=== PATIENT | male | born 1980 | race Caucasian/White ===

== ENCOUNTER 2018-05-09 10:36 | Emergency (ER) | payer MEDICAID ==
[2018-05-09 11:04] VITALS: BP 120/73
--- NOTE | 2018-05-09 11:21 | EDM.PDOC ---
ED HPI GENERAL MEDICAL PROBLEM - General Chief Complaint: Abdominal Pain Stated Complaint: LT SIDE ABD PAIN Time Seen by Provider: 05/09/18 11:05 Source of Information: Reports: Patient, Old Records, RN History Limitations: Reports: No Limitations - History of Present Illness INITIAL COMMENTS - FREE TEXT/NARRATIVE: 38 yo male here with L sided abdominal pain for about a week. Does not have a doctor. No fever. No vomiting. No "good" BM for about a week. Is taking stool softeners without good results. States pain is always there. 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 No hx of diverticulitis or abdominal surgeries. 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: Reports: Other (see below) (stool softeners) - Related Data Allergies Allergy/AdvReac Type Severity Reaction Status Date / Time No Known Allergies Allergy Verified 05/09/18 10:57 Home Meds: Home Meds Triamcinolone Acetonide [Triamcinolone Acetonide 0.5%] 1 applic TOP BID [History] Famotidine 40 mg PO DAILY #14 tablet 05/09/18 [Rx] Social & Family History - Tobacco Use Smoking Status *Q: Never Smoker ED ROS GENERAL - Review of Systems Review Of Systems: See Below Constitutional: Reports: No Symptoms HEENT: Reports: No Symptoms Respiratory: Reports: No Symptoms Cardiovascular: Reports: No Symptoms GI/Abdominal: Reports: Abdominal Pain, Other (inadequate stooling). Denies: Black Stool, Bloody Stool, Diarrhea, Hematemesis, Hematochezia, Melena, Nausea, Vomiting : Reports: No Symptoms Musculoskeletal: Reports: No Symptoms Skin: Reports: No Symptoms Neurological: Reports: No Symptoms ED EXAM, GI/ABD - Physical Exam Exam: See Below Exam Limited By: No Limitations General Appearance: Alert, WD/WN, No Apparent Distress Eyes: Bilateral: Normal Appearance Ears: Normal External Exam, Hearing Grossly Normal Nose: Normal Inspection, No Blood Throat/Mouth: Normal Inspection, Normal Lips, Normal Oropharynx, Normal Voice, No Airway Compromise Head: Atraumatic, Normocephalic Neck: Normal Inspection Respiratory/Chest: No Respiratory Distress, Lungs Clear, Normal Breath Sounds, No Accessory Muscle Use Cardiovascular: Regular Rate, Rhythm, No Edema GI/Abdominal Exam: Soft, Non-Tender, No Distention Back Exam: Normal Inspection. No: CVA Tenderness (R), CVA Tenderness (L) Extremities: Normal Inspection, Normal Range of Motion, Non-Tender, No Pedal Edema Neurological: Alert, Oriented, CN II-XII Intact, Normal Cognition, No Motor/ Sensory Deficits Psychiatric: Normal Affect, Normal Mood Skin Exam: Warm, Dry, Intact, Normal Color, No Rash Course - Vital Signs Last Recorded V/S: Last Vital Signs Temp 35.9 C 05/09/18 11:02 Pulse 64 05/09/18 11:02 Resp 14 05/09/18 11:02 BP 120/73 05/09/18 11:02 Pulse Ox 96 05/09/18 11:02 - Orders/Labs/Meds Labs: Laboratory Tests 05/09/18 05/09/18 05/09/18 Range/Units 12:23 12:31 13:07 WBC 9.7 (4.5-11.0) K/uL RBC 5.30 (4.30-5.90) M/uL Hgb 15.9 H (12.0-15.0) g/dL Hct 46.4 (40.0-54.0) % MCV 88 (80-98) fL MCH 30 (27-31) pg MCHC 34 (32-36) % Plt Count 233 (150-400) K/uL C-Reactive Protein 0.25 (0.0-0.3) mg/dL Urine Color Yellow Urine Appearance Clear Urine pH 6.0 (4.5-8.0) Ur Specific [place] 1.015 (1.008-1.030) Urine Protein Negative (NEGATIVE) mg/dL Urine Glucose (UA) Normal (NEGATIVE) mg/dL Urine Ketones Negative (NEGATIVE) mg/dL Urine Occult Blood Negative (NEGATIVE) Urine Nitrite Negative (NEGAITVE) Urine Bilirubin Negative (NEGATIVE) Urine Urobilinogen Normal (NORMAL) mg/dL Ur Leukocyte Esterase Negative (NEGATIVE) Urine RBC 0-5 (0-5) Urine WBC 0-5 (0-5) Ur Epithelial Cells Not seen Amorphous Sediment Few Urine Bacteria Not seen Urine Mucus Not seen Meds: Medications Discontinued Medications Generic Name Dose Route Start Last Admin Trade Name Florina PRN Reason Stop Dose Admin Famotidine 40 mg 05/09/18 13:10 Pepcid PO 05/09/18 13:11 ONETIME ONE - Radiology Interpretation Free Text/Narrative:: Abdominal X-ray-neg Departure - Departure Time of Disposition: 13:19 Disposition: Home, Self-Care 01 Condition: Good Clinical Impression: Abdominal pain in male - Discharge Information *PRESCRIPTION DRUG MONITORING PROGRAM REVIEWED*: No *COPY OF PRESCRIPTION DRUG MONITORING REPORT IN PATIENT ARI: No Prescriptions: Famotidine 40 mg PO DAILY #14 tablet Referrals: PCP,None [Primary Care Provider] - Forms: ED Department Discharge Additional Instructions: Take famotidine every 24 hrs. Take acetaminophen 1000 mg every 6 hrs as needed. Recheck in the clinic in 2-3 days, call for an appt.
--- NOTE | 2018-05-09 12:20 | CRLCR ---
INDICATION: Left sided abdominal pain. FINDINGS: A supine AP view of the abdomen was obtained. There is a nonobstructive bowel gas pattern. IMPRESSION: No plain film evidence of a bowel obstruction. Dictated by Abel Gavin MD @ 05/09/2018 12:18:19 PM Dictated by: Abel Gavin MD @ 05/09/2018 12:18:25 (Electronically Signed)
[2018-05-09] MEDS ORDERED: Famotidine 20 MG Tab PO ONE (13:10)
== END 2018-05-09 13:42 | disposition home or self-care (01) ==
LOC: JP.ED 10:36
DX: R10.9 Unspecified abdominal pain (principal)
CPT/HCPCS: 36415; 74018; 81001; 85027; 86140; 99284

== ENCOUNTER 2018-05-12 07:53 | Day surgery (SDC) | payer MEDICAID ==
[2018-05-12] MEDS ORDERED: Lactated Ringers 1,000 ML IV SCH (08:15)
[2018-05-12] MEDS ORDERED: fentaNYL 100 MCG/2 ML SDV ONE (09:13)
[2018-05-12] MEDS ORDERED: Propofol 200 MG/20 ML SDV ONE (09:13)
[2018-05-12] MEDS ORDERED: Midazolam 1 MG/ML 2 ML SDV ONE (09:13)
[2018-05-12 10:50] VITALS: BP 107/56
--- NOTE | 2018-05-12 11:00 | OR ---
DATE OF PROCEDURE: 05/12/2018 PREOPERATIVE DIAGNOSIS: Abdominal pain. POSTOPERATIVE DIAGNOSES: 1. Pre-pyloric ulcers. 2. Small area of sigmoid colon inflammation. PROCEDURES PERFORMED: 1. Esophagogastroduodenoscopy with antral biopsies for CLOtest and for pathology to look for Helicobacter pylori. 2. Colonoscopy to the cecum with biopsy of inflamed sigmoid colon area. SURGEON: Ramón Kirk MD. ANESTHESIA: IV anesthesia with monitored anesthesia care. INDICATION: This 38-year-old white male is referred for upper and lower endoscopies because of abdominal pain. He has never had either of these exams in the past. I counseled him for upper and lower endoscopy with possible biopsy, including risks and alternatives , and he gave his informed consent to proceed. DESCRIPTION OF PROCEDURE: The patient was placed in the left lateral decubitus position. IV anesthesia was administered by the Anesthesia Service. Time-out was held. The flexible video Olympus upper endoscope was passed through his mouth, down his esophagus, and into his stomach. The scope was easily passed through the pylorus and into the duodenum reaching its third portion. The scope was then slowly withdrawn examining the mucosa throughout. The duodenal mucosa appeared unremarkable. The scope was brought up through the pylorus into the antrum where two small pre-pyloric ulcers were seen. These were very shallow. The scope was retroflexed. The proximal stomach appeared unremarkable. The scope was straightened. We obtained antral biopsies for CLOtest and for pathology to look for Helicobacter pylori. The scope was then brought back up through the GE junction. This appeared unremarkable and then it was removed through the unremarkable-appearing esophagus. Next, a rectal exam was performed, which was unremarkable. The flexible video Olympus colonoscope was introduced through his anus, up his rectum and out his colon all the way to the cecum. Once the cecum was reached, the scope was slowly withdrawn examining the mucosa throughout. No mucosal abnormalities were noted until we reached the sigmoid colon. Here, we saw a small area of erythema suggesting of a localized colitis. We obtained biopsies of this area. The scope was then brought back into the rectum, where it was retroflexed. The distal rectum appeared unremarkable. The scope was straightened and removed. He tolerated the procedure well. Ramón Kirk MD /[id number] [facility]
== END 2018-05-12 10:55 | disposition home or self-care (01) ==
LOC: JP.SDS 07:53
PROVIDERS: ATTEND Surgery
DX: K25.9 Gastric ulcer, unspecified as acute or chronic, without hemorrhage or perforation (principal); D17.5 Benign lipomatous neoplasm of intra-abdominal organs; K21.9 Gastro-esophageal reflux disease without esophagitis
CPT/HCPCS: 43239; 45380; 87081; 88305; J2250; J2704; J3010; J7120

== ENCOUNTER 2023-01-25 03:04 | Emergency (ER) | payer SELFPAY ==
[2023-01-25 03:56] VITALS: BP 128/83; PULSE 98
[2023-01-25 04:14] LABS: BASOPHILS ABSOLUTE AUTO 0.06 K/uL (0.00-0.10); BASOPHILS PERCENT AUTO 0.4 % (0.1-1.3); EOSINOPHILS ABSOLUTE AUTO 0.59 K/uL (0.00-0.40); EOSINOPHILS PERCENT AUTO 4.1 % (0.0-5.4); HEMATOCRIT 47.3 % (38.4-49.7); HEMOGLOBIN 16.5 g/dL (12.9-16.9); IMMATURE GRAN ABSOLUTE AUTO 0.05 K/uL (0.00-0.23); IMMATURE GRAN PERCENT AUTO 0.3 % (0.0-0.7); LYMPHOCYTES ABSOLUTE AUTO 1.34 K/uL (0.8-3.3); LYMPHOCYTES PERCENT AUTO 9.3 % (11.4-47.7); MEAN CORPUSCULAR HEMOGLOBIN 30.1 pg (31.6-35.5); MEAN CORPUSCULAR HGB CONC 34.9 g/dL (31.6-35.5); MEAN CORPUSCULAR VOLUME 86.3 fL (81.4-99.0); MONOCYTES ABSOLUTE AUTO 0.98 K/uL (0.20-0.90); MONOCYTES PERCENT AUTO 6.8 % (3.3-12.6); NEUTROPHILS ABSOLUTE AUTO 11.46 K/uL (1.0-7.6); NEUTROPHILS PERCENT AUTO 79.1 % (40.0-78.1); PLATELET COUNT,PLT 237 K/uL (130-375); RED BLOOD CELL COUNT 5.48 M/uL (4.14-5.76); WHITE BLOOD CELL COUNT,WBC 14.5 K/uL (3.2-11.0)
[2023-01-25] MEDS ORDERED: Ketoconazole 2% Crm 30 GM Tube TOP SCH (04:15)
[2023-01-25 04:29] LABS: C-REACTIVE PROTEIN 4.64 mg/dL (0.0-0.3); CALCIUM 8.3 mg/dL (8.5-10.1); CREATININE 1.3 mg/dL (0.8-1.3); EST CRCL DRUG DOSING (CG) 80.42 mL/min; POTASSIUM,K 3.7 mmol/L (3.6-5.2)
[2023-01-25 04:30] LABS: ANION GAP 15.7 mmol/L (5.0-14.0)
[2023-01-25] MEDS ORDERED: Ketoconazole 2% Crm 30 GM Tube ONE (04:48)
== END 2023-01-25 05:53 | disposition home or self-care (01) ==
LOC: JP.ED 03:04
DX: B37.2 Candidiasis of skin and nail (principal)
CPT/HCPCS: 36415; 80048; 85025; 86140; 99283; A9270